=== PATIENT | female | born 1940 ===

== ENCOUNTER 2021-09-03 11:25 | Outpatient (CLI) | payer MEDICARE, MEDICAID, SELFPAY ==
[2021-09-05 15:31] LABS: COVID-19 RT-PCR UVMMC Result Negative (Negative)
== END 2021-09-03 11:26 | disposition home or self-care (01) ==
PROVIDERS: PCP Nurse Practitioner Family; Visit Provider Nurse Practitioner Family
DX: Z20.822 Contact with and (suspected) exposure to COVID-19 (principal)
CPT/HCPCS: U0003

== ENCOUNTER 2021-10-25 17:23 | Outpatient (REF) | payer MEDICARE, MEDICAID, SELFPAY | END 2021-10-25 17:24 | disposition home or self-care (01) | LOC: NCHCN 17:23 | PROVIDERS: PCP Nurse Practitioner Family; Visit Provider Nurse Practitioner Family ==

== ENCOUNTER 2021-10-26 03:46 | Outpatient (CLI) | payer MEDICARE, MEDICAID, SELFPAY ==
[2021-10-26 11:41] LABS: Abs Immature Grans 0.03 10^3/uL (0.0-0.06); Absolute Basophil Count 0.05 10^3/uL (0.0-0.2); Absolute Eosinophil Count 0.12 10^3/uL (0.0-0.7); Absolute Lymphocyte Count 1.87 10^3/uL (1.2-3.4); Absolute Neutrophil Count 3.52 10^3/uL (1.2-6.7); Basophils % 0.8; Eosinophils % 1.9; HCT 35.7 % (36.0-46.0); HGB 11.8 g/dL (11.2-15.7); Immature Grans % 0.5; Lymphocytes % 30.2; MCH 32.5 pg (27.0-33.0); MCHC 33.1 % (32.0-36.0); MCV 98.3 fL (80-95); MPV 9.7 fL (8.0-11.0); Monocytes % 9.7; Neutrophils % 56.9; Nucleated RBC 0 %; Platelet Count 254 10^3/uL (130-400); RBC 3.63 10^6/uL (3.93-5.22); RDW 14.4 % (11.7-14.6); RDW-SD 52.5 fL; WBC 6.19 10^3/uL (4.4-10.8)
[2021-10-26 13:11] LABS: ALT 20 U/L (14-59); AST 24 U/L (15-37); Albumin 3.5 g/dL (3.4-5.0); Alkaline Phosphatase 92 U/L (46-116); Anion Gap 10.1 mmol/L (3-11); BUN 22 mg/dL (7-18); Bilirubin, Total 0.4 mg/dL (0.2-1.0); CO2 25.9 mmol/L (21.0-32.0); Calcium 9.7 mg/dL (8.5-10.1); Chloride 101 mmol/L (98-107); Estimated GFR 53.35 (mL/min/1.73m2); Glucose 84 mg/dL (74-106); Magnesium 1.8 mg/dL (1.8-2.4); Potassium 4.4 mmol/L (3.5-5.1); Sodium 137 mmol/L (136-145); Total Protein 7.5 g/dL (6.4-8.2)
[2021-10-26 14:27] LABS: Iron 135 ug/dL (50-170); Total Iron Binding Capacity 354 ug/dL (250-450); Transferrin Sat 38 % (15-50)
[2021-10-26 14:30] LABS: VALPROIC ACID 65.8 ug/mL
[2021-10-26 14:58] LABS: Ferritin 81 ng/mL (8-252); Vitamin B12 1036 pg/mL (193-986)
== END 2021-10-26 03:47 | disposition home or self-care (01) ==
LOC: LBO 03:47
PROVIDERS: PCP Nurse Practitioner Family; Visit Provider Nurse Practitioner Family
DX: E11.9 Type 2 diabetes mellitus without complications (principal); K21.9 Gastro-esophageal reflux disease without esophagitis; I10 Essential (primary) hypertension; N18.9 Chronic kidney disease, unspecified
CPT/HCPCS: 36415; 80053; 80164; 82607; 82728; 83036; 83540; 83550; 83735; 85025

== ENCOUNTER → 2021-12-20 13:58 | Outpatient (CLI) | payer MEDICARE, MEDICAID, SELFPAY ==
--- NOTE | 2021-12-20 13:41 | DI.RAD_ITS ---
Exam(s) XR ABDOMEN FLAT PLATE EXAM: 2D digital imaging was performed. CLINICAL HISTORY: Constipation - K59.00. COMPARISON: No exams were available for comparison TECHNIQUE: Upright views of the abdomen performed. The patient did not want to do supine images. T wo images were obtained. FINDINGS: BOWEL GAS PATTERN: Nondistended. Minimal amount of stool is seen in the distal colon. CALCIFICATIONS: No radiopaque calcifications. OSSEOUS STRUCTURES: Normal for age. OTHER FINDINGS: None. Lung bases: Clear IMPRESSION: 1. Nonobstructive bowel gas pattern. 2. Minimal amount of retained stool. DATA REPOSITORY: RADIATION DOSE DELIVERED:
== END ==
PROVIDERS: PCP Nurse Practitioner Family; Visit Provider Nurse Practitioner Family
DX: K59.00 Constipation, unspecified (principal)
CPT/HCPCS: 74018

== ENCOUNTER 2021-12-20 15:15 | Outpatient (CLI) | payer MEDICARE, MEDICAID, SELFPAY ==
[2021-12-20 14:09] LABS: Abs Immature Grans 0.02 10^3/uL (0.0-0.06); Absolute Basophil Count 0.05 10^3/uL (0.0-0.2); Absolute Eosinophil Count 0.12 10^3/uL (0.0-0.7); Absolute Lymphocyte Count 1.97 10^3/uL (1.2-3.4); Absolute Monocyte Count 0.63 10^3/uL (0.1-0.8); Absolute Neutrophil Count 3.53 10^3/uL (1.2-6.7); Basophils % 0.8; Eosinophils % 1.9; HCT 36.1 % (36.0-46.0); HGB 11.6 g/dL (11.2-15.7); Immature Grans % 0.3; Lymphocytes % 31.2; MCH 32.7 pg (27.0-33.0); MCHC 32.1 % (32.0-36.0); MCV 101.7 fL (80-95); MPV 10.1 fL (8.0-11.0); Neutrophils % 55.8; Platelet Count 232 10^3/uL (130-400); RBC 3.55 10^6/uL (3.93-5.22); RDW 13.2 % (11.7-14.6); RDW-SD 49.7 fL; WBC 6.32 10^3/uL (4.4-10.8)
[2021-12-20 15:00] LABS: Iron 67 ug/dL (50-170); Total Iron Binding Capacity 339 ug/dL (250-450)
== END 2021-12-20 15:16 | disposition home or self-care (01) ==
LOC: LBO 15:17
PROVIDERS: PCP Nurse Practitioner Family; Visit Provider Nurse Practitioner Family
DX: R53.83 Other fatigue (principal); K59.00 Constipation, unspecified; Z86.2 Personal history of diseases of the blood and blood-forming organs and certain disorders involving the immune mechanism
CPT/HCPCS: 36415; 74018; 83540; 83550; 85025

== ENCOUNTER 2021-12-20 20:11 | Outpatient (REF) | payer MEDICARE, MEDICAID, SELFPAY | END 2021-12-20 20:12 | disposition home or self-care (01) | LOC: NCHCN 20:11 | PROVIDERS: PCP Nurse Practitioner Family; Visit Provider Nurse Practitioner Family ==

== ENCOUNTER 2021-12-31 21:27 | Outpatient (REF) | payer MEDICARE, MEDICAID, SELFPAY ==
[2022-01-01 13:15] LABS: COVID-19 RT-PCR UVMMC Result Negative (Negative)
== END 2021-12-31 21:28 | disposition home or self-care (01) ==
LOC: NCHCN 21:27
PROVIDERS: PCP Nurse Practitioner Family; Visit Provider Nurse Practitioner Family
DX: Z20.822 Contact with and (suspected) exposure to COVID-19 (principal)
CPT/HCPCS: U0003; U0005

== ENCOUNTER 2022-01-04 15:32 | Outpatient (REF) | payer MEDICARE, MEDICAID, SELFPAY ==
[2022-01-05 12:06] LABS: COVID-19 RT-PCR UVMMC Result Positive (Negative)
== END 2022-01-04 15:33 | disposition home or self-care (01) ==
LOC: NCHCN 15:32
PROVIDERS: PCP Nurse Practitioner Family; Visit Provider Nurse Practitioner Family
DX: Z20.822 Contact with and (suspected) exposure to COVID-19 (principal)
CPT/HCPCS: U0003; U0005

== ENCOUNTER 2022-01-05 18:22 | Outpatient (REF) | payer MEDICARE, MEDICAID, SELFPAY ==
[2022-01-06 15:03] LABS: COVID-19 RT-PCR UVMMC Result Positive (Negative)
== END 2022-01-05 18:23 | disposition home or self-care (01) ==
LOC: NCHCN 18:22
PROVIDERS: PCP Nurse Practitioner Family; Visit Provider Nurse Practitioner Family
DX: Z20.822 Contact with and (suspected) exposure to COVID-19 (principal)
CPT/HCPCS: U0003; U0005